=== PATIENT | male | born 1980 | race Caucasian/White ===

== ENCOUNTER 2017-09-28 00:39 | Emergency (ER) | payer MEDICAID ==
[~2017-09-28] VITALS: Ht 165.1 cm; Wt 71.8 kg
[2017-09-28 00:40] VITALS: BP 132/85
--- NOTE | 2017-09-28 00:45 | NUR ---
PT ASSISTED BACK TO LOBBY
--- NOTE | 2017-09-28 02:20 | NUR ---
PT AMBUALTED TO BED 5
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
--- NOTE | 2017-09-28 03:51 | NUR ---
Dr. Lee evaluating patient at bedside.
[2017-09-28 04:26] VITALS: BP 117/88
--- NOTE | 2017-09-28 04:28 | NUR ---
Patient discharged with v/s stable. Written and verbal after care instructions given and explained. Patient alert, oriented and verbalized understanding of instructions. Ambulatory with steady gait. All questions addressed prior to discharge. ID band removed. Patient advised to follow up with PMD. Rx of CLINDAMYCIN 150MG, IBU, NORCO 5MG given. Patient educated on indication of medication including possible reaction and side effects. Opportunity to ask questions provided and answered.
== END 2017-09-28 04:28 | disposition home or self-care (01) ==
LOC: MED 00:39
DX: K08.89 Other specified disorders of teeth and supporting structures (principal)
CPT/HCPCS: 99283